=== PATIENT | male | born 2000 | race Caucasian/White ===

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

== ENCOUNTER 2024-11-26 20:22 | Emergency (ER) | payer MEDICAID, SELFPAY ==
[2024-11-26 20:26] VITALS: BP 132/76; PULSE 70; RESP 16; TEMP 36.6; O2SAT 98
--- NOTE | 2024-11-26 20:27 | ECG_ITS ---
[employer] Test Date: 2024-11-26 Pat Name: Kristal Rahman Department: Room: Gender: Male Pbx Inspector: : 2000 Requested By: Dago Altman Order Number: [id number] Reid MD: Prieto Machado M.D. Measurements Intervals Sandy Rate: 66 P: 67 WA: 164 QRS: 77 QRSD: 86 T: 69 QT: 341 QTc: 359 Interpretive Statements SINUS RHYTHM EARLY REPOLARIZATION [ST ELEVATION WITH NORMALLY INFLECTED T-WAVE] No previous ECG available for comparison Electronically Signed On 11-28-2024 17:42:35 [employer] STOCK by Prieto Machado M.D. [email or web address]
[2024-11-26 20:48] LABS: Basophils % 0.5 %; Eosinophils # 0.2 10^3/uL (0.0-0.8); Eosinophils % 2.3 %; Hematocrit 46.1 % (37-53); Lymphocytes # 2.2 10^3/uL (0.8-4.8); Lymphocytes % 25.9 %; Mean Corpuscular HGB Conc 33.8 g/dL (30-55); Mean Corpuscular Hemoglobin 30.2 pg (27-33); Mean Corpuscular Volume 89.2 fl (82-101); Mean Platelet Volume 8.7 fL (7.4-10.4); Monocytes # 0.4 10^3/uL (0.2-0.9); Monocytes % 4.5 %; Neutrophils # 5.76 10^3/uL (1.8-7.7); Neutrophils % 66.6 %; Nucleated Red Blood Cells % 0 %; Platelet Count 235 10^3/cmm (157-399); Red Blood Count 5.17 10^6/uL (3.85-5.65); Red Cell Distribution Width 11.9 % (12.1-15.1); White Blood Count 8.65 10^3/uL (3.29-11.43)
--- NOTE | 2024-11-26 20:52 | W.ED.SYNCOPE ---
HPI - Syncope General: Chief Complaint: Syncope Stated Complaint: passed out , / hit head on counter Time Seen by Provider: 11/26/24 20:40 History of Present Illness: 23-year-old male with no known health problems who presents emergency room after having a syncopal episode. He said he had smoked marijuana and took a shot of alcohol. He was standing at the time. He thinks he hit his head. He was out for about 20 seconds. He feels fine now. No headache. No nausea or vomiting. No altered mental status. No palpitations. No chest pain. No abdominal pain. No nausea or vomiting. Related Data Previous Rx's ?Medication ?Instructions ?Recorded azithromycin 250 mg tablet See Rx Instructions PO .COMPLEX #6 03/18/24 tabs Allergies Allergy/AdvReac Type Severity Reaction Status Date / Time Penicillins AdvReac Unknown Unknown Unverified 11/26/24 20:32 Review of Systems Narrative: Constitutional symptoms: Negative except as documented in HPI. Skin symptoms: Negative except as documented in HPI. Eye symptoms: Negative except as documented in HPI. ENMT symptoms: Negative except as documented in HPI. Respiratory symptoms: Negative except as documented in HPI. Cardiovascular symptoms: Negative except as documented in HPI. Gastrointestinal symptoms: Negative except as documented in HPI. Genitourinary symptoms: Negative except as documented in HPI. Musculoskeletal symptoms: Negative except as documented in HPI. Neurologic symptoms: Negative except as documented in HPI. Psychiatric symptoms: Negative except as documented in HPI. Endocrine symptoms: Negative except as documented in HPI. Physical Exam Narrative: EXAM NARRATIVE: General: Alert, no acute distress. Skin: Warm, dry. Head: Normocephalic, atraumatic. Neck: Supple, trachea midline. Eye: Extraocular movements are intact. Ears, nose, mouth and throat: mucosa moist. Cardiovascular: Regular, Normal peripheral perfusion. Respiratory: Lungs are clear to auscultation, respirations are non-labored, breath sounds are equal, Symmetrical chest wall expansion. Gastrointestinal: Soft, Nontender, Non distended Musculoskeletal: Normal ROM, no deformity. Neurological: Alert and oriented, No focal neurological deficit observed. Psychiatric: Cooperative, appropriate mood & affect. Course Vital Signs: Vital signs: Vital Signs Temperature 97.9 F 11/26/24 20:26 Pulse Rate 68 11/26/24 21:00 Respiratory Rate 18 11/26/24 21:00 Blood Pressure 128/86 02/10/25 21:00 Pulse Oximetry 98 11/26/24 21:00 Oxygen Delivery Me thod Room Air 11/26/24 20:26 MDM - Syncope Medical Decision Making Medical decision making: Differential diagnosis including but not limited to and based on the above HPI, review of systems and physical exam in this patient with syncope: Vasovagal, orthostatics hypotension, cardiac dysrhythmia, myocardial infarction, infection and hypotension, Orders placed to evaluate differential diagnosis based on the above differential, HPI and physical exam EKG: Time 2034. Rate 66. Early repolarization. Normal sinus rhythm, No ST-T changes, no ectopy, normal SC & QRS intervals, This was reviewed and interpreted by myself the ER physician at 2039 Lab Review: Laboratory results were reviewed and interpreted by myself the emergency room physician. No leukocytosis. No anemia. No renal failure. Although his creatinine is a little higher than I would expect. Recommend oral hydration. I reviewed the patient's medical record. Reexamination: Patient remained stable. No increased work of breathing. No altered mental status. No focal motor deficits. Assessment and plan: Syncope - Discharged home - Discussed plan with patient. Answered any questions. - Evaluation and treatment of this problem were appropriate in the emergency setting. Lab Data 11/26/24 20:41 11/26/24 20: Laboratory Results WBC 8.65 10^3/uL (3.29-11.43) 11/26/24 20: RBC 5.17 10^6/uL (3.85-5.65) 11/26/24 20: Hgb 15.60 g/dL (11.27-16.99) 11/26/24 20: Hct 46.1 % (37-53) 11/26/24 20: MCV 89.2 fl (82-101) 11/26/24 20: MCH 30.2 pg (27-33) 11/26/24 20: MCHC 33.8 g/dL (30-55) 11/26/24 20: RDW 11.9 % (12.1-15.1) L 11/26/24 20: Plt Count 235 10^3/cmm (157-399) 11/26/24 20: MPV 8.7 fL (7.4-10.4) 11/26/24 20:41 Neut % (Auto) 66.6 % 11/26/24 20:41 Lymph % (Auto) 25.9 % 11/26/24 20:41 Greenlee % (Auto) 4.5 % 11/26/24 20:41 Eos % (Auto) 2.3 % 11/26/24 20:41 Baso % (Auto) 0.5 % 11/26/24 20:41 Neut # (Auto) 5.76 10^3/uL (1.8-7.7) 11/26/24 20:41 Lymph # (Auto) 2.2 10^3/uL (0.8-4.8) 11/26/24 20:41 Greenlee # (Auto) 0.4 10^3/uL (0.2-0.9) 11/26/24 20:41 Eos # (Auto) 0.2 10^3/uL (0.0-0.8) 11/26/24 20: Baso # (Auto) 0.0 10^3/uL (0.0-0.1) 11/26/24 20: Nucleated RBC % (auto) 0 % 11/26/24 20: Nucleated RBCs # 0.0 /100WBC 11/26/24 20:41 Sodium 137 mmol/L (136-145) 11/26/24 20: Potassium 3.8 mmol/L (3.5-5.1) 11/26/24 20: Chloride 98 mmol/L (98-107) 11/26/24 20: Carbon Dioxide 26 mmol/L (22-29) 11/26/24 20: Anion Gap 16.8 (5-19) 11/26/24 20:41 BUN 13 mg/dL (6-20) 11/26/24 20: Creatinine 1.1 mg/dL (0.7-1.2) 11/26/24 20: GFR Calculation 84.5 mL/min (90-130) L 11/26/24 20:41 Glucose 123 mg/dL (65-115) H 11/26/24 20:41 Calculated Osmolality 285 mOsm/kg (285-295) 11/26/24 20: Calcium 9.4 mg/dL (8.5-10.5) 11/26/24 20:41 Total Bilirubin 0.2 mg/dL (0.15-1.2) 11/26/24 20:41 AST 15 U/L (0-40) 11/26/24 20:41 ALT 12 U/L (0-41) 11/26/24 20:41 Alkaline Phosphatase 82 U/L (40-130) 11/26/24 20:41 Total Protein 7.3 g/dL (6.6-8.7) 11/26/24 20:41 Albumin 4.5 g/dL (3.5-5.2) 11/26/24 20:41 Globulin 2.8 g/dL (1.3-4.6) 11/26/24 20:41 Ethyl Alcohol < 10 mg/dL (0-10) 11/26/24 20:41 No radiology studies performed this visit Discharge Plan Discharge Patient Disposition: Home Clinical Impression: Syncope Condition: Stable Prescriptions: No Action azithromycin 250 mg tablet See Rx Instructions PO .COMPLEX Qty: 6 0RF Rx Instructions: take 500 mg today (day 1), then 250 mg for 4 days (days 2-5) PO Discharge Orders: Discharge ED (Routine); Ordered 11/26/24 Ordered By: Sabrina Pisano Referrals: Salvatore Young MD [Physician] - Hardeep Phan MD [Primary Care Provider] - Discharge Diet: Usual diet Discharge Activity: Increase activity as tolerated Patient Instructions: Syncope (ED), Opioid Safety, Pain Management Activity Restrictions/Additional Instructions: Thank you for choosing [facility] for your healthcare needs today. Please realize this is an emergency room and that we are providing you with a medical screening exam and this may not be complete and all inclusive of all the testing and or work up that you may need to determine your ailment or severity of your illness. You have been screened and evaluated and felt safe for discharge. Health conditions do change or evolve sometimes and as such it is important that you follow up with your Primary Doctor to be re checked, 3-5 days is a general good time frame for follow up. You are always welcome to return to the ED for re assessment if your symptoms are worsening or you have new concerns Print Language: Kyrgyz Coding Level of Care Code ED Inpatient Care Manager Rn for Krysten Auguste
[2024-11-26 21:00] VITALS: BP 128/86; PULSE 68; RESP 18; O2SAT 98
[2024-11-26 21:06] LABS: Alanine Aminotransferase 12 U/L (0-41); Albumin Level 4.5 g/dL (3.5-5.2); Alkaline Phosphatase 82 U/L (40-130); Anion Gap 16.8 (5-19); Aspartate Amino Transferase 15 U/L (0-40); Blood Urea Nitrogen 13 mg/dL (6-20); Calcium 9.4 mg/dL (8.5-10.5); Carbon Dioxide 26 mmol/L (22-29); Chloride 98 mmol/L (98-107); Creatinine Clr Calc Pharmacy 119.9532; Globulin 2.8 g/dL (1.3-4.6); Glomerular Filtration Rate 84.5 mL/min (90-130); Glucose 123 mg/dL (65-115); Osmolality Calculated 285 mOsm/kg (285-295); Potassium 3.8 mmol/L (3.5-5.1); Sodium 137 mmol/L (136-145); Total Bilirubin 0.2 mg/dL (0.15-1.2); Total Protein 7.3 g/dL (6.6-8.7)
[2024-11-26 21:10] LABS: Alcohol Level < 10 mg/dL (0-10)
[2024-11-26 21:33] VITALS: BP 130/54; PULSE 72; O2SAT 97
== END 2024-11-26 21:35 | disposition home or self-care (01) ==
PROVIDERS: Emergency Medicine; Emergency Provider Emergency Medicine; PCP Family Medicine
DX: R55 Syncope and collapse (principal)
CPT/HCPCS: 36415; 80053; 80307; 85025; 93005; 99284

== ENCOUNTER 2025-01-14 11:53 | Outpatient (CLI) | payer MEDICAID, SELFPAY ==
--- NOTE | 2025-01-14 11:57 | USCV_ITS ---
Kristal Rahman Age: 24 Gender: M : 2000 Exam Date: 01/14/2025 12:16 Ordering Phys: Salvatore Young MD Technologist: Exam Location: [facility] [place]: sycope BP: 110 / 70 HR: 58 Rhythm: Sinus Technical Quality: Adequate MEASUREMENTS (Male / Female) Normal Values 2D ECHO LV Diastolic Diameter PLAX 4.1 cm 4.2 - 5.9 / 3.9 - 5.3 cm IVS Diastolic Thickness 1.2 cm 0.6 - 1.0 / 0.6 - 0.9 cm IVS Systolic Thickness 1.7 cm LVPW Diastolic Thickness 1.0 cm 0.6 - 1.0 / 0.6 - 0.9 cm LVPW Systolic Thickness 1.8 cm LVOT Diameter 2.0 cm LV Ejection Fraction 2D Teich 69.8 % LV Ejection Fraction MOD 4C 66.8 % LV Ejection Fraction MOD 2C 72.8 % LV Ejection Fraction 2C AL 74.2 % LA Diameter 3.0 cm RA Systolic Volume 4C AL 29.4 ml RA Systolic Volume 4C MOD 28.3 ml LA Sys Volume AL 44.2 cm cubed LA Sys Volume Index AL 21.4 cm cubed/m squared Aorta at Sinotubular Diameter 2.2 cm IVC Diameter 1.4 cm M-MODE LA Ao Ratio MM 0.9 AV Cusp Separation MM 2.1 cm DOPPLER AV Peak Velocity 124.0 cm/s LVOT Peak Velocity 105.0 cm/s AV Area Cont Eq vti 2.6 cm squared AV Area Cont Eq pk 2.5 cm squared MV Peak Velocity 86.0 cm/s MV Area PHT 4.3 cm squared Mitral E to A Ratio 1.9 TR Peak Velocity 254.0 cm/s TR Peak Gradient 25.8 mmHg TV Peak E Velocity 104.0 cm/s PV Peak Velocity 101.0 cm/s FINDINGS Left Ventricle Normal left ventricular size, systolic function and wall thickness, with no regional wall motion abnormalities. Left ventricular ejection fraction is estimated at 60 %. Normal diastolic function. Right Ventricle The right ventricle is normal in size and function. Right Atrium The right atrium is normal in size. Left Atrium The left atrium is normal in size. Mitral Valve Structurally normal mitral valve without significant stenosis or prolapse. There is no mitral regurgitation. Aortic Valve Structurally normal aortic valve without significant sclerosis or stenosis. There is no aortic regurgitation. Tricuspid Valve Structurally normal tricuspid valve without significant stenosis or regurgitation. Pulmonary artery systolic pressure is normal. Pulmonic Valve Structurally normal pulmonic valve without significant stenosis. There is no pulmonic regurgitation. Pericardium Normal pericardium without effusion. Aorta Normal ascending aorta dimension. IVC The inferior vena cava appears normal. CONCLUSIONS Normal left ventricular size, systolic function and wall thickness, with no regional wall motion abnormalities. Left ventricular ejection fraction is estimated at 60 %. Normal diastolic function. There is no pericardial effusion. No significant valve abnormalities. Right atrial pressure is around 5 mm of mercury. Jayy Arroyo MD (Electronically Signed) Final Date: 31 January 2025 15:53 S
== END 2025-01-14 11:54 | disposition home or self-care (01) ==
LOC: RAD 11:54
PROVIDERS: PCP Family Medicine; Visit Provider Family Medicine
DX: R01.1 Cardiac murmur, unspecified (principal)
CPT/HCPCS: 93306